=== PATIENT | female | born 1955 | race Caucasian/White ===

== ENCOUNTER 2024-07-25 08:04 | Outpatient (CLI) | payer MEDICARE | END 2024-07-26 08:05 | disposition home or self-care (01) | LOC: CSHSLEEP 08:04 | PROVIDERS: ATTEND Family Medicine | DX: G47.33 Obstructive sleep apnea (adult) (pediatric) (principal); G47.61 Periodic limb movement disorder; R53.83 Other fatigue | CPT/HCPCS: 95810 ==

== ENCOUNTER 2024-10-31 08:29 | Outpatient (CLI) | payer MEDICARE | END 2024-10-31 08:30 | disposition home or self-care (01) | LOC: CSHSLEEP 08:29 | PROVIDERS: ATTEND Family Medicine | DX: G47.33 Obstructive sleep apnea (adult) (pediatric) (principal) | CPT/HCPCS: 95811 ==